=== PATIENT | female | born 1975 | race Caucasian/White ===

== ENCOUNTER 2016-05-16 20:05 | Emergency (ER) | payer OTHER ==
[2016-05-16 20:10] VITALS: BP 124/72; PULSE 99; TEMP 98; BMI 32.9
--- NOTE | 2016-05-16 20:52 | PDOC ---
History of Present Illness - General Chief Complaint: Wound Infection Stated Complaint: WOUND Time Seen by Provider: 05/16/16 20:13 History Source: Patient Exam Limitations: No Limitations - History of Present Illness Initial Comments: 05/16/16 20:47 40-year-old female with no past medical history presents the ED with complaints of redness to her left hip that began initially as a black dot 2 days ago.Patient states similar symptoms about one year ago but was able to squeeze the black that out followed by a thick green material. Patient denies fever, chills or radiation of pain., Timing/Duration: reports: getting worse, yesterday Severity: Yes: mild Location: reports: extremities Associated Symptoms: reports: edema, swelling/mass/lumps Past History - Past Medical History Allergies/Adverse Reactions: Allergies Allergy/AdvReac Type Severity Reaction Status Date / Time No Known Allergies Allergy Verified 05/16/16 20:08 Home Medications: Ambulatory Orders NK [No Known Home Medication] 05/16/16 Other medical history: denies - Surgical History Cholecystectomy: Yes (x3) - Immunization History Immunization Up to Date: Yes - Psycho/Social/Smoking Cessation Hx Anxiety: No Suicidal Ideation: No Smoking History: Never smoked Have you smoked in the past 12 months: No Number of Cigarettes Smoked Daily: 0 Cigars Per Day: 0 Hx Alcohol Use: No Drug/Substance Use Hx: No Patient Lives Alone: No Lives with/in: spouse/SO Review of Systems - Review of Systems Able to Perform ROS?: Yes Constitutional: No: Symptoms Reported HEENTM: No: Symptoms Reported Integumentary: Yes: Erythema, Lumps Neurological: No: Symptoms reported *Physical Exam - Vital Signs Last Vital Signs Temp Pulse Resp BP Pulse Ox 98 F 99 H 18 124/72 100 05/16/16 20:09 05/16/16 20:09 05/16/16 20:09 05/16/16 20:09 05/16/16 20:09 - Physical Exam General Appearance: Yes: Nourished, Appropriately Dressed. No: Apparent Distress Integumentary: positive: Other (4 x 3 erythematous and slightly indurated raised area over the left hip. Center with minimal fluctuance. No increased warmth, surrounding skin intact.) Neurologic: positive: Motor Strength 5/5 Procedures - Incision and Drainage I&D Site: Left: Leg Betadine cleansed: Yes Anesthesia: 1% Lidocaine Volume(ml): 1 Blade Size: 11 Attempts: 1 (Small amount thick cao purulent fluid expressed) Dressing: Yes ( 2 x 2) Medical Decision Making - Medical Decision Making 05/16/16 20:53 Patient with erythematous slightly indurated with fluctuance circular area to the lateral aspect of left hip. I and D was performed without difficulty. Patient will be placed on Bactrim and told to continue hot soaks at home. *DC/Admit/Observation/Transfer Diagnosis at time of Disposition: Abscess - Discharge Dispostion Disposition: HOME Condition at time of disposition: Good - Referrals Referrals: Anamika Miranda MD [Primary Care Provider] - - Patient Instructions Printed Discharge Instructions: DI for Incision and Drainage of a Skin Abscess Additional Instructions: Continue with hot soaks 4 times a day for at least 15 minutes For the next 3 days. Please take antibiotics as prescribed. Return to ED if symptoms worsen. Otherwise follow-up with your primary care physician.
== END 2016-05-16 20:55 | disposition home or self-care (01) ==
LOC: JERFT 20:05
PROC: 0J9M0ZZ Drainage of Left Upper Leg Subcutaneous Tissue and Fascia, Open Approach (ICD-10-PCS; principal; 2016-05-16)
DX: L02.416 Cutaneous abscess of left lower limb (principal)
CPT/HCPCS: 10060; 99281-25

== ENCOUNTER 2017-06-16 20:48 | Emergency (ER) | payer OTHER ==
[2017-06-16 20:58] VITALS: BP 136/70; PULSE 74; TEMP 98.1; BMI 32.4
--- NOTE | 2017-06-16 21:18 | PDOC ---
History of Present Illness - General Chief Complaint: Laceration Stated Complaint: LACERATION History Source: Patient Exam Limitations: No Limitations - History of Present Illness Initial Comments: 06/16/17 21:13 The pt preented to ER with a left hand 4th finder volar aspect by nail bed pain and avulsion from a slicer. No acute bleeding at this time Pt c/o throbbing. Does not remember last tetanus Timing/Duration: reports: just prior to arrival Severity: Yes: moderate Location: reports: hands Past History - Past Medical History Allergies/Adverse Reactions: Allergies Allergy/AdvReac Type Severity Reaction Status Date / Time No Known Allergies Allergy Verified 06/16/17 20:53 Home Medications: Ambulatory Orders Ibuprofen [Motrin -] 600 mg PO TID PRN #21 tablet 05/16/16 Sulfamethoxazole/Trimethoprim [Bactrim Ds -] 1 tab PO BID #14 tablet 05/16/16 COPD: No - Surgical History Cholecystectomy: Yes (x3) - Immunization History Immunization Up to Date: Yes - Suicide/Smoking/Psychosocial Hx Smoking History: Never smoked Have you smoked in the past 12 months: No Number of Cigarettes Smoked Daily: 0 Cigars Per Day: 0 Hx Alcohol Use: No Drug/Substance Use Hx: No Review of Systems - Review of Systems Able to Perform ROS?: Yes Is the patient limited Korean proficient: Yes Constitutional: No: Fever HEENTM: No: Symptoms Reported Respiratory: No: Symptoms reported Cardiac (ROS): No: Symptoms Reported ABD/GI: No: Symptoms Reported : No: Symptoms Reported Musculoskeletal: Yes: Other (hand pain) Integumentary: Yes: See HPI Neurological: No: Symptoms reported Psychiatric: No: Anxiety *Physical Exam - Vital Signs Last Vital Signs Temp Pulse Resp BP Pulse Ox 98.1 F 74 18 136/70 100 06/16/17 20:53 06/16/17 20:53 06/16/17 20:53 06/16/17 20:53 06/16/17 20:53 - Physical Exam HEENT: positive: Normal Voice Respiratory/Chest: positive: Lungs Clear Cardiovascular: positive: Regular Rate Gastrointestinal/Abdominal: positive: Flat, Soft Musculoskeletal: positive: Normal Inspection Extremity: positive: Normal Capillary Refill, Normal Inspection Integumentary: positive: Dry, Warm, Other (laceration to the left had 4th finger ) Neurologic: positive: Fully Oriented Procedures - Laceration/Wound Repair Left Volar Hand Wound Length: to 2.5 cm Wound Explored: clean Wound's Depth, Shape: irregular Irrigated w/ Saline: Yes Betadine Prep: Yes Anesthesia: 1% Lidocaine Amount of Anesthetic (ccs): 4 Wound Debrided: minimal Suture Size/Type: other (surgicel to wound and dsg applied) Layer Closure: No Sterile Dressing Applied: Yes Splint Applied: No Sling Applied: No Medical Decision Making - Medical Decision Making 06/16/17 21:19 Pt seen and examined. wound treated. tetnaus given wound check in 3 days *DC/Admit/Observation/Transfer Diagnosis at time of Disposition: Finger laceration Qualifiers: Encounter type: initial encounter Finger: ring finger Damage to nail status: with damage Foreign body presence: without foreign body Laterality: left Qualified Code(s): S61.315A - Laceration without foreign body of left ring finger with damage to nail, initial encounter - Discharge Dispostion Disposition: HOME Condition at time of disposition: Good Admit: No - Referrals Referrals: Anamika Miranda MD [Primary Care Provider] - - Patient Instructions Printed Discharge Instructions: DI for Laceration Repair Additional Instructions: Discharge instructions 1. pain mediation for relief of pain as needed 2. keep wound clean and dry until follow up 3. any fever chills or infection, return to er immediately 4. tetanus given - Post Discharge Activity
[2017-06-16] MEDS ORDERED: TETANUS AND DIPHTHERIA TOXOID 0.5 ML DISP.SYRIN IM ONE (21:23)
== END 2017-06-16 21:49 | disposition home or self-care (01) ==
LOC: JERFT 20:48
PROC: 0HQGXZZ Repair Left Hand Skin, External Approach (ICD-10-PCS; principal; 2017-06-16)
DX: S61.315A Laceration without foreign body of left ring finger with damage to nail, initial encounter (principal); W29.0XXA Contact with powered kitchen appliance, initial encounter; Y93.9 Activity, unspecified; Y92.9 Unspecified place or not applicable
CPT/HCPCS: 99281-25

== ENCOUNTER 2017-06-19 16:28 | Emergency (ER) | payer OTHER ==
[2017-06-19 16:33] VITALS: BP 118/68; PULSE 76; TEMP 98.1; BMI 32.4
--- NOTE | 2017-06-19 17:06 | PDOC ---
Suture Removal/Wound Check HPI - History of Present Illness Chief Complaint: Revisit,Wound Recheck Stated Complaint: REVISIT Time Seen by Provider: 06/19/17 16:40 History Source: Yes: Patient Exam Limitations: Yes: No Limitations Treated at: [facility] Date of Last ED visit: 06/17/17 - Previous ED Treatment Tetanus Immunization: Yes: Up to Date Past History - Travel Traveled outside of the country in the last 30 days: No - Past Medical History Allergies/Adverse Reactions: Allergies Allergy/AdvReac Type Severity Reaction Status Date / Time No Known Allergies Allergy Verified 06/19/17 16:32 Home Medications: Ambulatory Orders Tramadol HCl 50 mg PO BID #5 tablet MDD 2 06/16/17 COPD: No - Surgical History Cholecystectomy: Yes (x3) - Immunization History Immunization Up to Date: Yes - Suicide/Smoking/Psychosocial Hx Smoking History: Never smoked Have you smoked in the past 12 months: No Number of Cigarettes Smoked Daily: 0 Cigars Per Day: 0 Hx Alcohol Use: No Drug/Substance Use Hx: No Patient Lives Alone: No Lives with/in: spouse/SO Suture Removal/Wound Check PE - Physical Exam Laceration/Wound Check Symptoms: reports: None Pain Radiation: None *Review of Systems - Review of Systems Able to Perform ROS?: No Constitutional: No: Symptoms Reported Integumentary: No: Symptoms Reported Medical Decision Making - Medical Decision Making 06/19/17 17:06 Patient here for wound check. Patient states was using a mandolin when she sliced her left fourth digit causing her to lose part of the nail requiring her to come to the ER with a hip placed Surgicel and told to return to the ED and 2 days for wound check. Patient has no complaints on exam dressing removed Surgicel's remains in place. Area redressed bacitracin and Telfa. Instructions given to remove in 3 days. *DC/Admit/Observation/Transfer Diagnosis at time of Disposition: Visit for wound check - Discharge Dispostion Disposition: HOME - Referrals Referrals: Anamika Miranda MD [Primary Care Provider] - - Patient Instructions Additional Instructions: Please keep bandage on for the next 2 days and then remove leaving it open to air. Please allow Surgicel to fall off on its own - Post Discharge Activity
== END 2017-06-19 17:17 | disposition home or self-care (01) ==
LOC: JERFT 16:28
DX: Z48.01 Encounter for change or removal of surgical wound dressing (principal); S61.315D Laceration without foreign body of left ring finger with damage to nail, subsequent encounter; W27.4XXD Contact with kitchen utensil, subsequent encounter
CPT/HCPCS: 99281-25

== ENCOUNTER 2018-09-22 17:50 | Emergency (ER) | payer OTHER ==
[2018-09-22 18:11] VITALS: BP 114/79; PULSE 105; TEMP 98.5; BMI 33.3
--- NOTE | 2018-09-22 18:16 | PDOC ---
Rapid Medical Evaluation Chief Complaint: Abscess Boil Time Seen by Provider: 09/22/18 18:08 Medical Evaluation: Allergies Allergy/AdvReac Type Severity Reaction Status Date / Time No Known Allergies Allergy Verified 09/22/18 18:08 Vital Signs Temp Pulse Resp BP Pulse Ox 98.5 F 105 H 17 114/79 99 09/22/18 18:08 09/22/18 18:08 09/22/18 18:08 09/22/18 18:08 09/22/18 18:08 09/22/18 18:13 Patient complaints of: rt buttock abscess x 3 days, no fever, no diabetes Patient on brief exam: rt buttock erythema with central fluctulance Patient ordered for: none Patient to proceed to the ED Discharge Disposition - Diagnosis Abscess - Referrals - Patient Instructions - Post Discharge Activity
[2018-09-22] MEDS ORDERED: IBUPROFEN 400 MG TABLET (FP) PO ONE ×2 (19:09→19:15)
[2018-09-22] MEDS ORDERED: SULFAMETHOXAZOLE/TRIMETHOPRIM 800MG/160MG D.S. TABLET PO ONE (19:11)
[2018-09-22] MEDS ORDERED: CEPHALEXIN MONOHYDRATE 500 MG CAPSULE (UD) PO ONE (19:11)
[2018-09-22] MEDS ORDERED: SULFAMETHOXAZOLE/TRIMETHOPRIM 800MG/160MG D.S. TABLET ONE (19:15)
[2018-09-22] MEDS ORDERED: CEPHALEXIN MONOHYDRATE 500 MG CAPSULE (UD) ONE (19:16)
--- NOTE | 2018-09-22 20:00 | PDOC ---
History of Present Illness - General Chief Complaint: Abscess Boil Stated Complaint: ABCESS RIGHT LEG Time Seen by Provider: 09/22/18 18:08 History Source: Patient Exam Limitations: No Limitations Past History - Past Medical History Allergies/Adverse Reactions: Allergies Allergy/AdvReac Type Severity Reaction Status Date / Time No Known Allergies Allergy Verified 09/22/18 18:08 Home Medications: Ambulatory Orders Tramadol HCl 50 mg PO BID #5 tablet MDD 2 06/16/17 Cephalexin [Keflex] 500 mg PO BID #14 capsule 09/22/18 Sulfamethoxazole/Trimethoprim [Bactrim Ds -] 1 tab PO BID #14 tablet 09/22/18 COPD: No - Surgical History Cholecystectomy: Yes (x3) - Immunization History Immunization Up to Date: Yes - Suicide/Smoking/Psychosocial Hx Smoking History: Never smoked Have you smoked in the past 12 months: No Number of Cigarettes Smoked Daily: 0 Cigars Per Day: 0 Information on smoking cessation initiated: No Hx Alcohol Use: No Drug/Substance Use Hx: No *Physical Exam - Vital Signs Last Vital Signs Temp Pulse Resp BP Pulse Ox 98.5 F 105 H 17 114/79 99 09/22/18 18:08 09/22/18 18:08 09/22/18 18:08 09/22/18 18:08 09/22/18 18:08 - Physical Exam General Appearance: No: Apparent Distress Integumentary: positive: Other (Around 4x4 cm area of induration along R lower buttocks with center area of fluctuance, surrounding erythema and warmth noted, no streaking) Neurologic: positive: Alert, Normal Mood/Affect Procedures - Incision and Drainage I&D Site: Right: Buttock Betadine cleansed: Yes Anesthesia: 1% Lidocaine Blade Size: 11 Attempts: 1 Plain Packing: Yes (1/4 inch (iodinated packing not in stock)) Complications: none ED Treatment Course - Medications Given in the ED: ED Medications Discontinued Medications Generic Name Dose Route Start Last Admin Trade Name Freq PRN Reason Stop Dose Admin Cephalexin HCl 500 mg 09/22/18 19:11 09/22/18 19:23 Keflex - PO 09/22/18 19:12 500 mg ONCE ONE Administration Ibuprofen 800 mg 09/22/18 19:09 09/22/18 19:22 Motrin - PO 09/22/18 19:10 800 mg ONCE ONE Administration Trimethoprim/Sulfamethoxazole 1 each 09/22/18 19:11 09/22/18 19:23 Bactrim Ds - PO 09/22/18 19:12 1 each ONCE ONE Administration Medical Decision Making - Medical Decision Making 43 y/o F with no sig pmh presents with abscess along R buttock x 6 days. Denies fever. Mentions this happened once before, around 2 years ago, but it was on L buttock at that time. States she does shave the site at times. I&D done of abscess Site packed Given abx 09/22/18 19:56 *DC/Admit/Observation/Transfer Diagnosis at time of Disposition: Abscess - Discharge Dispostion Disposition: HOME Condition at time of disposition: Stable Decision to Admit order: No - Prescriptions Prescriptions: Cephalexin [Keflex] 500 mg PO BID #14 capsule Sulfamethoxazole/Trimethoprim [Bactrim Ds -] 1 tab PO BID #14 tablet - Referrals - Patient Instructions Printed Discharge Instructions: DI for Incision and Drainage of a Skin Abscess Additional Instructions: Thank you for choosing [facility]. It was a pleasure taking care of you. You may take Motrin 600 mg every 6 hours by mouth as needed for mild to moderate pain. Take Motrin with food. Take antibiotics as prescribed Return in 2 days for wound check If the packing does accidentally fall out, you can also perform Sitz bath 2-3 times a day (you can buy a plastic bath at a drugstore which will fit on your toilet or you can use your bathtub). Sitz bath involves soaking the hips and butts in warm water Return to the Emergency Department if your symptoms worsen or persist, you have fever, worsening pain, streaking or other concerning symptoms. - Post Discharge Activity
== END 2018-09-22 20:23 | disposition home or self-care (01) ==
LOC: JERFT 17:50
PROC: 0J990ZZ Drainage of Buttock Subcutaneous Tissue and Fascia, Open Approach (ICD-10-PCS; principal; 2018-09-22)
DX: L02.31 Cutaneous abscess of buttock (principal)
CPT/HCPCS: 10060; 99281-25

== ENCOUNTER 2018-09-24 13:04 | Emergency (ER) | payer OTHER | END 2018-09-24 13:55 | disposition home or self-care (01) | LOC: JERFT 13:04 ==

== ENCOUNTER 2021-12-07 22:26 | Emergency (ER) | payer OTHER ==
[2021-12-07 22:54] VITALS: BP 110/72; PULSE 100; RESP 18; TEMP 98.1; BMI 31.3
== END 2021-12-08 01:54 | disposition home or self-care (01) ==
LOC: JER 22:26
DX: S93.401A Sprain of unspecified ligament of right ankle, initial encounter (principal); X50.0XXA Overexertion from strenuous movement or load, initial encounter
CPT/HCPCS: 73610-TC-RT-FY; 73630-TC-RT-FY; 99284-25

== ENCOUNTER 2024-10-13 21:55 | Observation (INO) | payer OTHER ==
[2024-10-13 22:12] VITALS: BMI 29.8
[2024-10-13 23:43] LABS: ABSOLUTE IMMATURE GRANULOCYTES 0.02 x10^3/uL (0.0-0.031); BASOPHILS # 0.02 x10^3/uL (0.01-0.08); EOSINOPHIL % 0.2 % (0.7-5.8); EOSINOPHILS # 0.01 x10^3/uL (0.04-0.36); MCHC 26.0 g/dl (32.2-35.5); MEAN CELL VOLUME 63.8 fl (79.4-94.8); MEAN PLT VOLUME 9.3 fl (9.4-12.3); MONOCYTE # 0.37 x10^3/uL (0.24-0.86); MONOCYTE % 5.7 % (4.7-12.5); RDW 20.1 % (12.2-17.1)
[2024-10-13 23:51] LABS: INR 1.13 (0.83-1.09); PROTHROMBIN TIME (PATIENT) 12.4 SEC (9.7-13.0)
[2024-10-13 23:54] LABS: ACTIVATED PTT 22.8 SECONDS (25.2-36.5)
[2024-10-14 00:06] LABS: CO2 26.0 mmol/L (21-32); GLUCOSE,RANDOM 107.0 mg/dL (74-106)
[2024-10-14 00:10] LABS: CREATININE 0.7 mg/dL (0.55-1.3); SGOT/AST 15.0 U/L (15-37); SGPT/ALT 25.0 U/L (13-61)
[2024-10-14 00:11] LABS: TOT PROT 7.2 g/dl (6.4-8.2)
[2024-10-14 00:12] LABS: ALK PHOS 46.0 U/L (45-117)
[2024-10-14 00:27] LABS: IRON SERUM 13.0 ug/dL (50-175)
[2024-10-14 00:59] LABS: HIV INTERPRETATION NEGATIVE (NEGATIVE)
[2024-10-14 11:04] LABS: ABSOLUTE IMMATURE GRANULOCYTES 0.02 x10^3/uL (0.0-0.031); BASOPHILS # 0.02 x10^3/uL (0.01-0.08); EOSINOPHIL % 0.7 % (0.7-5.8); EOSINOPHILS # 0.03 x10^3/uL (0.04-0.36); MCHC 27.8 g/dl (32.2-35.5); MEAN CELL VOLUME 68.7 fl (79.4-94.8); MEAN PLT VOLUME 9.0 fl (9.4-12.3); MONOCYTE # 0.36 x10^3/uL (0.24-0.86); MONOCYTE % 8.1 % (4.7-12.5); RDW 23.1 % (12.2-17.1)
[2024-10-14 11:23] LABS: CO2 28.0 mmol/L (21-32); GLUCOSE,RANDOM 117.0 mg/dL (74-106)
[2024-10-14 11:26] LABS: CREATININE 0.7 mg/dL (0.55-1.3)
[2024-10-14 11:27] LABS: SGOT/AST 14.0 U/L (15-37); SGPT/ALT 23.0 U/L (13-61)
[2024-10-14 11:28] LABS: TOT PROT 6.4 g/dl (6.4-8.2)
[2024-10-14 11:30] LABS: ALK PHOS 42.0 U/L (45-117)
[2024-10-14 11:59] VITALS: BP 99/58; PULSE 82; RESP 20; TEMP 98.1
== END 2024-10-14 12:17 | disposition home or self-care (01) ==
LOC: JER 21:55 → JERBED 10-14 00:22
PROVIDERS: ADMIT Internal Medicine; ATTEND Nurse Practitioner Family
PROC: 30233N1 Transfusion of Nonautologous Red Blood Cells into Peripheral Vein, Percutaneous Approach (ICD-10-PCS; principal; 2024-10-14)
DX: D64.9 Anemia, unspecified (principal); N93.9 Abnormal uterine and vaginal bleeding, unspecified; R55 Syncope and collapse; Z90.49 Acquired absence of other specified parts of digestive tract; Z87.442 Personal history of urinary calculi
CPT/HCPCS: 36415; 36430; 36511; 71045-TC-FY; 76830-TC; 80053; 82728; 83540; 83550; 83735; 84484; 84702; 85025; 85610; 85730; 86803; 86850; 86900; 86901; 86922; 87389; 93005; 93010; 99285-25; G0378; P9038; P9058